=== PATIENT | female | born 1985 | race Caucasian/White ===

== ENCOUNTER 2017-11-16 16:17 | Emergency (ER) | payer OTHER ==
--- NOTE | 2017-11-16 16:40 | ED ---
Skin/Abscess/FB HPI - General Chief complaint: Skin/Abscess/Foreign Body Stated complaint: lump close to (4yrs) Time Seen by Provider: 11/16/17 16:31 Source: patient, RN notes reviewed Mode of arrival: ambulatory Limitations: no limitations - History of Present Illness Initial comments: This is a 32-year-old female who presents to the emergency department chief complaint of "lump near scar." Patient states that she had a C- section 4 years ago. She states that one year ago she noticed a small mass above her scar and attributed it to scar tissue. Patient states that over the last couple of days the mass has grown in size. She states that it is not painful but feels like a pressure. Denies fever, chills, chest pain, shortness of breath, abdominal pain, nausea or vomiting, constipation or diarrhea, dysuria or hematuria, numbness or tingling, headache or vision changes. - Related Data Home Medications Medication Instructions Recorded Confirmed [id number] Acid 1 caplet PO DAILY 03/08/14 03/08/14 [-U Capsule] Allergies Allergy/AdvReac Type Severity Reaction Status Date / Time No Known Allergies Allergy Verified 11/16/17 16:23 Review of Systems ROS Statement: Those systems with pertinent positive or pertinent negative responses have been documented in the HPI. ROS Other: All systems not noted in ROS Statement are negative. Past Medical History Past Medical History: No Reported History History of Any Multi-Drug Resistant Organisms: None Reported Past Surgical History: Section Additional Past Surgical History / Comment(s): [place] teeth extraction Past Anesthesia/Blood Transfusion Reactions: No Reported Reaction Past Psychological History: Anxiety, Depression Smoking Status: Current every day smoker Past Alcohol Use History: None Reported Past Drug Use History: None Reported General Exam - General Exam Comments Initial Comments: General: Awake and alert, well-developed; in no apparent distress. HEENT: Head atraumatic, normocephalic. Pupils are equal, round and reactive to light. Extraocular movements intact. Oropharynx moist without erythema or exudate. Neck: Supple. Normal ROM. Cardiovascular: Regular rate and rhythm. No murmurs, rubs or gallops. Chest symmetrical. Respiratory: Lungs clear to auscultation bilaterally. No wheezes, rales or rhonchi. Normal respiratory effort with no use of accessory muscles. Abdomen: Soft, non-tender, non-distended. No rigidity, rebound or guarding. There is a firm, mobile approximately 1 cm in diameter mass right suprapubic region superior to scar. Musculoskeletal: Normal ROM, no tenderness bilateral upper and lower extremities. Ambulating normally. Skin: [place], warm and dry without rashes or lesions. Neurological: Alert and oriented x3. CN II-XII grossly intact. Speech is fluent and answers are appropriate. No focal neuro deficits. Psychiatric: Normal mood and affect. No overt signs of depression or anxiety noted. Limitations: no limitations Course Vital Signs 11/16/17 16:21 Temperature 98.6 F Pulse Rate 108 H Respiratory 20 Rate Blood Pressure 160/92 O2 Sat by Pulse 100 Oximetry Medical Decision Making - Medical Decision Making This is a 32-year-old female who presented to the emergency department for evaluation of a "lump near scar." Patient states that the "lump" has been present for one year but has noticed an increase in size over the last couple of days. There is a palpable firm, mobile 1 cm in diameter mass suprapubic region superior to previous scar. Mass is non-tender. Ultrasound revealed a hypoechoic vascular mass. It indicated correlating for cellulitis or subcutaneous infection. This area is not red, warm, tender or swollen. Also indicated to correlate for endometriosis subcutaneously. Patient denies any history of endometriosis. Recommended following up with patient's primary care provider for possible excision. She is in no acute distress and will be discharged home. Patient is in agreement with plan and voices understanding. All questions were answered. - Radiology Data Radiology results: report reviewed Ultrasound abdomen limited findings: Superficial 1.4 x 0.8 x 1.7 cm well- defined hypoechoic vascular mass. Impression: As above, differential would include subcutaneous infection or cellulitis. Correlate clinically. One must also consider subcutaneous endometriosis, correlate clinically. Disposition Clinical Impression: Subcutaneous mass Disposition: HOME SELF-CARE Condition: Good Instructions: Soft Tissue Mass (ED) Additional Instructions: Please follow up with primary care provider within 1-2 days. Return to emergency department if symptoms should worsen or any concerns arise. Referrals: Brent Alcantar MD [Primary Care Provider] - 1-2 days Time of Disposition: 18:59
--- NOTE | 2017-11-16 18:49 | US ---
EXAMINATION TYPE: US pelvis limited DATE OF EXAM: 11/16/2017 COMPARISON: NONE CLINICAL HISTORY: suprapubic mass . Palpable pelvic mass just right of midline at scar x past 6 months. Superficial 1.4 x 0.8 x 1.7cm well defined hypoechoic vascular mass. IMPRESSION: As above, differential would include subcutaneous infection or cellulitis. Correlate clinically. One must also consider subcutaneous endometriosis, correlate clinically. MTDD
[2017-11-16 19:03] VITALS: BP 144/96; PULSE 88; RESP 18; TEMP 98.2
== END 2017-11-16 19:03 | disposition home or self-care (01) ==
LOC: EC 16:17
DX: R22.2 Localized swelling, mass and lump, trunk (principal); F17.200 Nicotine dependence, unspecified, uncomplicated; Z79.899 Other long term (current) drug therapy
CPT/HCPCS: 76705; 76857; 99283